=== PATIENT | female | born 1990 | race Caucasian/White ===

== ENCOUNTER 2017-02-02 15:01 | Emergency (ER) | payer OTHER ==
[~2017-02-02 15:01] MED LIST: IBUPROFEN400 MG PO; SUBOXONE1 MI1 SL; VICODIN EQUIVAL1 TAB PO
--- NOTE | 2017-02-02 17:02 | ED CLINICAL REPORT ---
Clinical Report - Physicians/Mid Levels [facility] [address] [place] [address] 02/02/2017 15:02 [id number] Time Seen: 15:06 Feb 02 2017. Arrived- By private vehicle. Historian- patient. HISTORY OF PRESENT ILLNESS Chief Complaint: ABDOMINAL PAIN. This started 10 days PERIODONTIST and is still present. (patient presents with pelvic pain or last 10 days, currently on metronidazole as well as doxycycline, being treated for pelvic inflammatory disease. Unsure of her symptoms are improving. Her discharge and odor has improved. However she continues to have pain. Denies any urgency or frequency or any back pain. Denies any fevers. Patient is sexual active, with a male partner,one partner, who also has not had any complaints. Previous he was treated for chlamydia, however this was distant, perhaps 8 years previously.). REVIEW OF SYSTEMS No constipation, difficulty with urination, pain with urination, fever or headache. All systems otherwise negative, except as recorded above. PAST HISTORY Problems: Recent Travel. Dental Pain. Chronic pain. UTI - Urinary Tract Infection. Ectopic . Pelvic Pain. OB History. Vaginitis. . Pelvic Inflammatory Disease. Nephrolithiasis. Abscess. Healing Abscess. Ovarian Cyst. Immunizations. LNMP - Last Normal Menstrual Period. Additional Surgeries: Dilatation & Curettage. Exploratory laparoscopy. Lysis of adhesions. Tonsillectomy. Medications: Motrin 800mg TID , last one at 1030am . MetroNIDAZOLE Oral, 2x a day as needed, last dose yesterday (had 7 day dose finished yesterday ). Doxycycline Hyclate Oral, BID (today s 8th day, is a 10 day script ). Allergies: Penicillins. SOCIAL HISTORY Smoker- current status unknown. Alcohol use; consumes beer occasionally. History of drug use. PHYSICAL EXAM Appearance: No acute distress. ENT: Nose abnormal. Neck: Normal inspection. CVS: Normal heart rate and rhythm. Heart sounds normal. No cardiac murmur. Respiratory: No respiratory distress. Breath sounds normal. Chest nontender. No rales or rhonchi. Abdomen: Soft and nontender. Mild tenderness in the suprapubic area and lower abdomen. No guarding or Baer's sign present. Back: Normal inspection. : Normal external exam. A scant amount of thin and white vaginal discharge present. Mild cervical motion tenderness. Skin: Skin warm. Normal skin color. Neuro: Oriented X 3. No motor deficit. No sensory deficit. LABS, X-RAYS, AND EKG Laboratory Tests: UA-Culture if indicated: (VALORIE: 02/02/2017 15:15) ( [facility] 02/02/2017 15:58) Final results Test Result Flag Units (Reference) URINE COLOR YELLOW URINE APPEARANCE CLEAR URINE GLUCOSE NEGATIVE (NEGATIVE) URINE BILIRUBIN NEGATIVE (NEGATIVE) URINE KETONE TRACE (NEGATIVE) URINE SPECIFIC GRAVITY 1.010 (1.010-1.030) URINE PH 6.0 (5.0-8.0) URINE PROTEIN NEGATIVE (NEGATIVE) URINE UROBILINOGEN 0.2 EU/dL (0.2-1.0) URINE NITRITE NEGATIVE (NEGATIVE) URINE BLOOD NEGATIVE (NEGATIVE) URINE LEUK ESTERASE NEGATIVE (NEGATIVE) URINE RBC NONE SEEN rbc/hpf (0-1) URINE WBC 1-3 wbc/hpf (0-1) URINE EPITHELIAL CELLS 10-15 EPI/hpf (0-5) URINE BACTERIA MODERATE (2+ TO 3+) (NONE SEEN) URINE COMMENT CULTURE INDICATED 1+ MUCUSURINE CULTURES ARE SET-UP BASED ON THE FOLLOWING CRITERIA:POSITIVE NITRITEPOSITIVE LEUKOCYTE ESTERASEGREATER THAN 10 WHITE BLOOD CELLSMODERATE (2+) OR GREATER BACTERIA CBC w Diff: (VALORIE: 02/02/2017 15:50) ( [facility] 02/02/2017 16:14) Final results Test Result Flag Units (Reference) WHITE BLOOD COUNT 8.5 K/uL (4.5-11.5) RED BLOOD COUNT 4.15 M/uL (4.00-5.20) HEMOGLOBIN 12.6 gm/dL (12.0-16.0) HEMATOCRIT 37.4 % (36.0-46.0) MEAN CELL VOLUME 90 fL (80-100) MEAN CORPUSCULAR HGB 30 pg (26-34) MEAN CORPUSCULAR HGB CONC 34 g/dL (31-37) RED CELL DISTRIBUTION WIDTH 12.6 % (11.6-14.8) PLATELET COUNT 277 K/uL (150-400) NEUTROPHIL % 63.8 % (50-75) LYMPH % 29.9 % (25-40) MONO % 5.8 % (3-14) EOSINOPHIL % 0.3 % (0-4) BASOPHIL % 0.2 % (0-2) CMP: (VALORIE: 02/02/2017 15:50) ( MsgRcvd 02/02/2017 16:28) Final results Test Result Flag Units (Reference) GLUCOSE 89 mg/dL (70-110) BUN 10 mg/dL (7-18) CREATININE 0.7 mg/dL (0.6-1.3) Estimated GFR >60 mL/min Estimated GFR- >60 mL/min Note: Persistent reduction over 3 months in eGFR<60 mL/min/1.73 m2 defines CKD. Patients with eGFR values>=60 mL/min/1.73 m2 may also have CKD if evidence ofpersistent proteinuria. Additional information may be foundat www.kidney.org. SODIUM 142 mmol/L (136-145) POTASSIUM 3.7 mmol/L (3.5-5.1) CHLORIDE 106 mmol/L (98-107) CARBON DIOXIDE 25 mmol/L (21-32) CALCIUM 9.2 mg/dL (8.5-10.1) TOTAL PROTEIN 7.2 g/dL (6.4-8.2) ALBUMIN 4.1 g/dL (3.3-5.0) BILIRUBIN, TOTAL 0.4 mg/dL (0.0-1.0) ALKALINE PHOSPHATASE 37 L U/L (46-116) AST (SGOT) 14 L U/L (15-37) ALT (SGPT) 22 U/L (12-78) BETA HCG, QUANTITATIVE <1 mIU/mL REFERENCE RANGE:Adult Males: <2 mIU/mLNon- Females: <6 mIU/mL Females:Approximate Approximate hCGGestational Age Range (mIU/mL) 0-1 week 0-501-2 weeks 40-3002-3 weeks 100-39535-3 weeks 500-93581-5 months 5,000-200,0002-3 months 10,000-100,0002nd trimester 3,000-50,0003rd trimester 1,000-50,000 Wet Prep: (VALORIE: 02/02/2017 15:45) ( MsgRcvd 02/02/2017 16:15) Final results SPECIMEN DESCRIPTION: C Test Result Flag Units (Reference) WET MOUNT CLUE CELLS:: NONE EPITHELIAL CELLS: MODERATE -- SOURCE?: CERVIX WHITE BLOOD CELLS: FEW TRICHOMONAS:: NONE -- YEAST:: NONE . Note - Tests: (us Neg). PROGRESS AND PROCEDURES Course of Care: Sexually active female, with no signs of in the emergency department. Labs are largely unremarkable. Patient is finishing treatment for PID, whether she has irritation of the area, or underlying gonorrhea or chlamydia, such are pending results. Patient is urged to follow up with CREAM DIPPER. At this time abdomen without any signs of guarding, peritoneal signs, no signs of acute surgical abdomen. During the time in the ED, the following DDX were considered: acute surgical abdomen, hemodynamic or metabolic instability, dehydration, gastroenteritis-viral, food borne, or bacterial, food intolerance, irritable or inflammatory bowel, infection, sepsis. Patient is stable. Patient/family counseled. Disposition: Discharged. CLINICAL IMPRESSION Acute pelvic inflammatory disease. INSTRUCTIONS Drink plenty of fluids. Prescription Medications: Hydrocodone/APAP 5mg / 325mg: take 1 orally every 6 hours as needed for pain. Dispense twelve (12). No refill. Follow-up with: Marcial Abdi MD, Obstetrics/Gynecology, , [facility], [address] [place] [address], [facility], [facility] Follow up. Call for the next available appointment. (Electronically signed by Yara Mccormack P.A.-C 02/02/2017 17:14)
--- NOTE | 2017-02-02 17:02 | ED CLINICAL REPORT ---
Clinical Report - Physicians/Mid Levels [facility] [address] [place] [address] 02/02/2017 15:02 [id number] Time Seen: 15:06 Feb 02 2017. Arrived- By private vehicle. Historian- patient. HISTORY OF PRESENT ILLNESS Chief Complaint: ABDOMINAL PAIN. 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 (patient presents with pelvic pain or last 10 days, currently on metronidazole as well as doxycycline, being treated for pelvic inflammatory disease. Unsure of her symptoms are improving. Her discharge and odor has improved. However she continues to have pain. Denies any urgency or frequency or any back pain. Denies any fevers. Patient is sexual active, with a male partner,one partner, who also has not had any complaints. Previous he was treated for chlamydia, however this was distant, perhaps 8 years previously.). REVIEW OF SYSTEMS No constipation, difficulty with urination, pain with urination, fever or headache. All systems otherwise negative, except as recorded above. PAST HISTORY Problems: Recent Travel. Dental Pain. Chronic pain. UTI - Urinary Tract Infection. Ectopic . Pelvic Pain. OB History. Vaginitis. . Pelvic Inflammatory Disease. Nephrolithiasis. Abscess. Healing Abscess. Ovarian Cyst. Immunizations. LNMP - Last Normal Menstrual Period. Additional Surgeries: Dilatation & Curettage. Exploratory laparoscopy. Lysis of adhesions. Tonsillectomy. Medications: Motrin 800mg TID , last one at 1030am . MetroNIDAZOLE Oral, 2x a day as needed, last dose yesterday (had 7 day dose finished yesterday ). Doxycycline Hyclate Oral, BID (today s 8th day, is a 10 day script ). Allergies: Penicillins. SOCIAL HISTORY Smoker- current status unknown. Alcohol use; consumes beer occasionally. History of drug use. PHYSICAL EXAM Appearance: No acute distress. ENT: Nose abnormal. Neck: Normal inspection. CVS: Normal heart rate and rhythm. Heart sounds normal. No cardiac murmur. Respiratory: No respiratory distress. Breath sounds normal. Chest nontender. No rales or rhonchi. Abdomen: Soft and nontender. Mild tenderness in the suprapubic area and lower abdomen. No guarding or Baer's sign present. Back: Normal inspection. : Normal external exam. A scant amount of thin and white vaginal discharge present. Mild cervical motion tenderness. Skin: Skin warm. Normal skin color. Neuro: Oriented X 3. No motor deficit. No sensory deficit. LABS, X-RAYS, AND EKG Laboratory Tests: UA-Culture if indicated: (VALORIE: 02/02/2017 15:15) ( [facility] 02/02/2017 15:58) Final results Test Result Flag Units (Reference) URINE COLOR YELLOW URINE APPEARANCE CLEAR URINE GLUCOSE NEGATIVE (NEGATIVE) URINE BILIRUBIN NEGATIVE (NEGATIVE) URINE KETONE TRACE (NEGATIVE) URINE SPECIFIC GRAVITY 1.010 (1.010-1.030) URINE PH 6.0 (5.0-8.0) URINE PROTEIN NEGATIVE (NEGATIVE) URINE UROBILINOGEN 0.2 EU/dL (0.2-1.0) URINE NITRITE NEGATIVE (NEGATIVE) URINE BLOOD NEGATIVE (NEGATIVE) URINE LEUK ESTERASE NEGATIVE (NEGATIVE) URINE RBC NONE SEEN rbc/hpf (0-1) URINE WBC 1-3 wbc/hpf (0-1) URINE EPITHELIAL CELLS 10-15 EPI/hpf (0-5) URINE BACTERIA MODERATE (2+ TO 3+) (NONE SEEN) URINE COMMENT CULTURE INDICATED 1+ MUCUSURINE CULTURES ARE SET-UP BASED ON THE FOLLOWING CRITERIA:POSITIVE NITRITEPOSITIVE LEUKOCYTE ESTERASEGREATER THAN 10 WHITE BLOOD CELLSMODERATE (2+) OR GREATER BACTERIA CBC w Diff: (VALORIE: 02/02/2017 15:50) ( [facility] 02/02/2017 16:14) Final results Test Result Flag Units (Reference) WHITE BLOOD COUNT 8.5 K/uL (4.5-11.5) RED BLOOD COUNT 4.15 M/uL (4.00-5.20) HEMOGLOBIN 12.6 gm/dL (12.0-16.0) HEMATOCRIT 37.4 % (36.0-46.0) MEAN CELL VOLUME 90 fL (80-100) MEAN CORPUSCULAR HGB 30 pg (26-34) MEAN CORPUSCULAR HGB CONC 34 g/dL (31-37) RED CELL DISTRIBUTION WIDTH 12.6 % (11.6-14.8) PLATELET COUNT 277 K/uL (150-400) NEUTROPHIL % 63.8 % (50-75) LYMPH % 29.9 % (25-40) MONO % 5.8 % (3-14) EOSINOPHIL % 0.3 % (0-4) BASOPHIL % 0.2 % (0-2) CMP: (VALORIE: 02/02/2017 15:50) ( MsgRcvd 02/02/2017 16:28) Final results Test Result Flag Units (Reference) GLUCOSE 89 mg/dL (70-110) BUN 10 mg/dL (7-18) CREATININE 0.7 mg/dL (0.6-1.3) Estimated GFR >60 mL/min Estimated GFR- >60 mL/min Note: Persistent reduction over 3 months in eGFR<60 mL/min/1.73 m2 defines CKD. Patients with eGFR values>=60 mL/min/1.73 m2 may also have CKD if evidence ofpersistent proteinuria. Additional information may be foundat www.kidney.org. SODIUM 142 mmol/L (136-145) POTASSIUM 3.7 mmol/L (3.5-5.1) CHLORIDE 106 mmol/L (98-107) CARBON DIOXIDE 25 mmol/L (21-32) CALCIUM 9.2 mg/dL (8.5-10.1) TOTAL PROTEIN 7.2 g/dL (6.4-8.2) ALBUMIN 4.1 g/dL (3.3-5.0) BILIRUBIN, TOTAL 0.4 mg/dL (0.0-1.0) ALKALINE PHOSPHATASE 37 L U/L (46-116) AST (SGOT) 14 L U/L (15-37) ALT (SGPT) 22 U/L (12-78) BETA HCG, QUANTITATIVE <1 mIU/mL REFERENCE RANGE:Adult Males: <2 mIU/mLNon- Females: <6 mIU/mL Females:Approximate Approximate hCGGestational Age Range (mIU/mL) 0-1 week 0-501-2 weeks 40-3002-3 weeks 100-46524-4 weeks 500-48150-3 months 5,000-200,0002-3 months 10,000-100,0002nd trimester 3,000-50,0003rd trimester 1,000-50,000 Wet Prep: (VALORIE: 02/02/2017 15:45) ( MsgRcvd 02/02/2017 16:15) Final results SPECIMEN DESCRIPTION: C Test Result Flag Units (Reference) WET MOUNT CLUE CELLS:: NONE EPITHELIAL CELLS: MODERATE -- SOURCE?: CERVIX WHITE BLOOD CELLS: FEW TRICHOMONAS:: NONE -- YEAST:: NONE . Note - Tests: (us Neg). PROGRESS AND PROCEDURES Course of Care: Sexually active female, with no signs of in the emergency department. Labs are largely unremarkable. Patient is finishing treatment for PID, whether she has irritation of the area, or underlying gonorrhea or chlamydia, such are pending results. Patient is urged to follow up with WELL CONTROL INSTRUCTOR. At this time abdomen without any signs of guarding, peritoneal signs, no signs of acute surgical abdomen. During the time in the ED, the following DDX were considered: acute surgical abdomen, hemodynamic or metabolic instability, dehydration, gastroenteritis-viral, food borne, or bacterial, food intolerance, irritable or inflammatory bowel, infection, sepsis. Patient is stable. Patient/family counseled. Disposition: Discharged. CLINICAL IMPRESSION Acute pelvic inflammatory disease. INSTRUCTIONS Drink plenty of fluids. Prescription Medications: Hydrocodone/APAP 5mg / 325mg: take 1 orally every 6 hours as needed for pain. Dispense twelve (12). No refill. Follow-up with: Marcial Abdi MD, Obstetrics/Gynecology, , [facility], [address] [place] [address], [facility] Follow up. Call for the next available appointment. (Electronically signed by Yara Mccormack P.A.-C 02/02/2017 17:14)
--- NOTE | 2017-02-02 17:02 | ED NURSING NOTES ---
Clinical Report - Nurses [facility] [address] [place] [address] 02/02/2017 15:02 Patient: BRITTANIE BEJARANO TRIAGE Triage time 1505. Acuity: LEVEL 3. Chief Complaint: (pt c/o low midline abd pain, is being treated for PID, but still having pain and clinic said she might need US, so directed her to ED>. Pt states she is better on antibiotics. Not having pain with urination, and vag discharge is scant and not foul smelling). 15:05. --15:19 Fabiana Mcnamara R.N. 15:05 02/02/17. BP: 118/73. HR: 86. RR: 18. O2 saturation: 100%. Temp: 98.7 F. Pain level now: 05/28. --15:19 Fabiana Mcnamara R.N. Weight: 54.4 kg stated. Height/Length: 64 inches Per Patient. BMI: 20.6. --15:09 Fabiana Mcnamara R.N. Medications Doxycycline Hyclate Oral, BID (today s 8th day, is a 10 day script ). --15:11 Fabiana Mcnamara R.N. MetroNIDAZOLE Oral, 2x a day as needed, last dose yesterday (had 7 day dose finished yesterday ). --15:12 Fabiana Mcnamara R.N. Motrin 800mg TID , last one at 1030am . --15:13 Fabiana Mcnamara R.N. Allergies Penicillins. --15:08 Fabiana Mcnamara R.N. History Arrived by private vehicle. Historian: patient. Accompanied by (dropped off). No primary care physician. SOCIAL HX: Heavy tobacco smoker (cigarette)- less than 1 pack per day. Occasional alcohol use. History of drug use: marijuana. --15:19 Fabiana Mcnamara R.N. PROBLEMS: UTI - Urinary Tract Infection. Ectopic . Pelvic Pain. Vaginitis. Pelvic Inflammatory Disease. Nephrolithiasis. --15:08 Fabiana Mcnamara R.N. ADDITIONAL SURGERIES: Dilatation & Curettage. Exploratory laparoscopy. Lysis of adhesions. Tonsillectomy. --15:08 Fabiana Mcnamara R.N. Interventions ID band on patient. To treatment room. --15:19 Fabiana Mcnamara R.N. PHYSICAL ASSESSMENT 15:06. Ambulatory to room. Patient gowned. GENERAL / NEURO / PSYCH: Alert. Oriented X 4. Appears in pain. RESPIRATORY: Respirations not labored. CVS: Capillary refill less than 2 seconds. SKIN: Skin is warm and dry. --15:19 Fabiana Mcnamara R.N. NURSING PROGRESS NOTES 15:06 02/02/17. Patient gowned. Head of bed elevated. Reassurance given. Patient identifiers checked. Call light placed in reach. Side rails up. Bed placed in lowest position. --15:06 Fabiana Mcnamara R.N. 15:12. Patient ID band checked for patient name and birthdate: patient confirmed. Instructions provided to collect clean catch urine. Clean catch urine collected; sample sent to lab for urinalysis and culture. Specimen labeled in the presence of the patient. --15:19 Fabiana Mcnamara R.N. 15:48 02/02/17. PELVIC EXAM: Pelvic exam performed by PA. Assisted by one nurse. Preparation: pelvic tray; patient placed in lithotomy position. Procedure: speculum and bimanual exam. Specimens collected and sent to lab: GC, chlamydia, wet prep and DNA probe. Status post-procedure: she was stable. Total time of assist / procedure: 15 minutes. --15:48 Fabiana Mcnamara R.N. 15:57 02/02/17. Patient ID band checked for patient name and birthdate. Blood samples drawn by lab per protocol ; labeled in presence of the patient: rainbow set. Blood samples not sent to lab. --15:57 Fabiana Mcnamara R.N. 16:29 US at bedside. --16:29 Adrianne Acosta R.N. 16:35 02/02/2017 Hydrocodone-APAP (Hydrocodone-Acetaminophen) PO 5/325 mg Tablets 2 tab given. Allergies verified, confirmed 5 rights and sedative warning given to the patient. --16:35 Adrianne Acosta R.N. 16:45 Pt ambulated to bathroom. stable on feet. --16:48 Fabiana Mcnamara R.N. DISPOSITION / DISCHARGE 17:10. Condition at departure: stable. No learning barriers present. Discharge instructions provided and reviewed with the patient. Reviewed medication(s) (vicodin, motrin). Patient verbalized understanding. Written instructions provided in Upper Sorbian. The patient was discharged home and accompanied by inpatient pharmacist. She left the Emergency Department ambulatory and via private vehicle. Reconciliation Specialist driving. --18:04 Fabiana Mcnamara R.N. 17:10 02/02/17. BP: 117/74. HR: 70. RR: 18. O2 saturation: 100%. Temp: deferred. Pain level now: 8/10. Additional comments: states worse after us probe. --18:04 Fabiana Mcnamara R.N. Locked/Released at 02/02/2017 18:05 by Fabiana Mcnamara R.N.
--- NOTE | 2017-02-02 17:02 | ED ORDER SUMMARY ---
..... Patient: BRITTANIE BEJARANO OrderSheet [facility] VisitID: [id number] [place] [address] 26y, F Registration Date/Time: 02/02/2017 ORDER SHEET Weight: 54.4 kg (stated) Allergies: Penicillins GENERAL ORDERS: CBC w Diff Urgent (15:22 02/02/2017 EKoroleva P.A.-C) (Ack 15:32 PWeiler ER Tech1) (16:33 DDean R.N.) CMP Urgent (15:22 02/02/2017 EKoroleva P.A.-C) (Ack 15:32 PWeiler ER Tech1) (16:33 DDean R.N.) UA-Culture if indicated Urgent (15:22 02/02/2017 EKoroleva P.A.-C) (Ack 15:32 PWeiler ER Tech1) (15:48 DDean R.N.) Serum Quantitative Urgent (15:22 02/02/2017 EKoroleva P.A.-C) (Ack 15:32 PWeiler ER Tech1) (16:33 DDean R.N.) Wet Prep (Cervix) (c) Urgent (15:22 02/02/2017 EKoroleva P.A.-C) (Ack 15:32 PWeiler ER Tech1) (15:48 DDean R.N.) GC/Chlamydia (Cervix) (c) Urgent (15:22 02/02/2017 EKoroleva P.A.-C) (Ack 15:32 PWeiler ER Tech1) (15:48 DDean R.N.) Pelvic Exam Setup (15:26 02/02/2017 EKoroleva P.A.-C) (15:26 DDean R.N.) US Pelvic Complete w Transvag Urgent (16:00 02/02/2017 EKoroleva P.A.-C) (Ack 16:01 PWeiler ER Tech1) (18:04 DDean R.N.) MEDICATION ORDERS: Hydrocodone-APAP PO 10/650 mg (NOW, HIGH ALERT MEDICATION) (16:29 02/02/2017 Mumtaz Barrientos) (Ack 16:33 Elaina Higgins) (16:35 Mateo Higgins) IV FLUIDS: ORDER SHEET NOTES: [Electronically signed by Yara Mccormack P.A.-C (17:14 02/02/2017)] [Electronically signed by Fabiana Mcnamara R.N. (18:05 02/02/2017)] [Electronically locked/signed by Fabiana Mcnamara R.N. (18:05 02/02/2017)]
--- NOTE | 2017-02-02 17:02 | ED ORDER SUMMARY ---
..... Patient: BRITTANIE BEJARANO OrderSheet [facility] VisitID: [id number] [place] [address] 26y, F Registration Date/Time: 02/02/2017 ORDER SHEET Weight: 54.4 kg (stated) Allergies: Penicillins GENERAL ORDERS: CBC w Diff Urgent (15:22 02/02/2017 EKoroleva P.A.-C) (Ack 15:32 PWeiler ER Tech1) (16:33 DDean R.N.) CMP Urgent (15:22 02/02/2017 EKoroleva P.A.-C) (Ack 15:32 PWeiler ER Tech1) (16:33 DDean R.N.) UA-Culture if indicated Urgent (15:22 02/02/2017 EKoroleva P.A.-C) (Ack 15:32 PWeiler ER Tech1) (15:48 DDean R.N.) Serum Quantitative Urgent (15:22 02/02/2017 EKoroleva P.A.-C) (Ack 15:32 PWeiler ER Tech1) (16:33 DDean R.N.) Wet Prep (Cervix) (c) Urgent (15:22 02/02/2017 EKoroleva P.A.-C) (Ack 15:32 PWeiler ER Tech1) (15:48 DDean R.N.) GC/Chlamydia (Cervix) (c) Urgent (15:22 02/02/2017 EKoroleva P.A.-C) (Ack 15:32 PWeiler ER Tech1) (15:48 DDean R.N.) Pelvic Exam Setup (15:26 02/02/2017 EKoroleva P.A.-C) (15:26 DDean R.N.) US Pelvic Complete w Transvag Urgent (16:00 02/02/2017 EKoroleva P.A.-C) (Ack 16:01 PWeiler ER Tech1) (18:04 DDean R.N.) MEDICATION ORDERS: Hydrocodone-APAP PO 10/650 mg (NOW, HIGH ALERT MEDICATION) (16:29 02/02/2017 Mumtaz Barrientos) (Ack 16:33 Elaina Higgisn) (16:35 Mateo Higgins) IV FLUIDS: ORDER SHEET NOTES: [Electronically signed by Yara Mccormack P.A.-C (17:14 02/02/2017)] [Electronically signed by Fabiana Mcnamara R.N. (18:05 02/02/2017)] [Electronically locked/signed by Fabiana Mcnamara R.N. (18:05 02/02/2017)]
--- NOTE | 2017-02-02 17:02 | ED NURSING NOTES ---
Clinical Report - Nurses [facility] [address] [place] [address] 02/02/2017 15:02 Patient: BRITTANIE BEJARANO TRIAGE Triage time 1505. Acuity: LEVEL 3. Chief Complaint: (pt c/o low midline abd pain, is being treated for PID, but still having pain and clinic said she might need US, so directed her to ED>. Pt states she is better on antibiotics. Not having pain with urination, and vag discharge is scant and not foul smelling). 15:05. --15:19 Fabiana Mcnamara R.N. 15:05 02/02/17. BP: 118/73. HR: 86. RR: 18. O2 saturation: 100%. Temp: 98.7 F. Pain level now: 05/28. --15:19 Fabiana Mcnamara R.N. Weight: 54.4 kg stated. Height/Length: 64 inches Per Patient. BMI: 20.6. --15:09 Fabiana Mcnamara R.N. Medications Doxycycline Hyclate Oral, BID (today s 8th day, is a 10 day script ). --15:11 Fabiana Mcnamara R.N. MetroNIDAZOLE Oral, 2x a day as needed, last dose yesterday (had 7 day dose finished yesterday ). --15:12 Fabiana Mcnamara R.N. Motrin 800mg TID , last one at 1030am . --15:13 Fabiana Mcnamara R.N. Allergies Penicillins. --15:08 Fabiana Mcnamara R.N. History Arrived by private vehicle. Historian: patient. Accompanied by (dropped off). No primary care physician. SOCIAL HX: Heavy tobacco smoker (cigarette)- less than 1 pack per day. Occasional alcohol use. History of drug use: marijuana. --15:19 Fabiana Mcnamara R.N. PROBLEMS: UTI - Urinary Tract Infection. Ectopic . Pelvic Pain. Vaginitis. Pelvic Inflammatory Disease. Nephrolithiasis. --15:08 Fabiana Mcnamara R.N. ADDITIONAL SURGERIES: Dilatation & Curettage. Exploratory laparoscopy. Lysis of adhesions. Tonsillectomy. --15:08 Fabiana Mcnamara R.N. Interventions ID band on patient. To treatment room. --15:19 Fabiana Mcnamara R.N. PHYSICAL ASSESSMENT 15:06. Ambulatory to room. Patient gowned. GENERAL / NEURO / PSYCH: Alert. Oriented X 4. Appears in pain. RESPIRATORY: Respirations not labored. CVS: Capillary refill less than 2 seconds. SKIN: Skin is warm and dry. --15:19 Fabiana Mcnamara R.N. NURSING PROGRESS NOTES 15:06 02/02/17. Patient gowned. Head of bed elevated. Reassurance given. Patient identifiers checked. Call light placed in reach. Side rails up. Bed placed in lowest position. --15:06 Fabiana Mcnamara R.N. 15:12. Patient ID band checked for patient name and birthdate: patient confirmed. Instructions provided to collect clean catch urine. Clean catch urine collected; sample sent to lab for urinalysis and culture. Specimen labeled in the presence of the patient. --15:19 Fabiana Mcnamara R.N. 15:48 02/02/17. PELVIC EXAM: Pelvic exam performed by PA. Assisted by one nurse. Preparation: pelvic tray; patient placed in lithotomy position. Procedure: speculum and bimanual exam. Specimens collected and sent to lab: GC, chlamydia, wet prep and DNA probe. Status post-procedure: she was stable. Total time of assist / procedure: 15 minutes. --15:48 Fabiana Mcnamara R.N. 15:57 02/02/17. Patient ID band checked for patient name and birthdate. Blood samples drawn by lab per protocol ; labeled in presence of the patient: rainbow set. Blood samples not sent to lab. --15:57 Fabiana Mcnamara R.N. 16:29 US at bedside. --16:29 Adrianne Acosta R.N. 16:35 02/02/2017 Hydrocodone-APAP (Hydrocodone-Acetaminophen) PO 5/325 mg Tablets 2 tab given. Allergies verified, confirmed 5 rights and sedative warning given to the patient. --16:35 Adrianne Acosta R.N. 16:45 Pt ambulated to bathroom. stable on feet. --16:48 Fabiana Mcnamara R.N. DISPOSITION / DISCHARGE 17:10. Condition at departure: stable. No learning barriers present. Discharge instructions provided and reviewed with the patient. Reviewed medication(s) (vicodin, motrin). Patient verbalized understanding. Written instructions provided in Setswana. The patient was discharged home and accompanied by soil analyst. She left the Emergency Department ambulatory and via private vehicle. Server Systems Administrator driving. --18:04 Fabiana Mcnamara R.N. 17:10 02/02/17. BP: 117/74. HR: 70. RR: 18. O2 saturation: 100%. Temp: deferred. Pain level now: 8/10. Additional comments: states worse after us probe. --18:04 Fabiana Mcnamara R.N. Locked/Released at 02/02/2017 18:05 by Fabiana Mcnamara R.N.
--- NOTE | 2017-02-02 18:05 | ED MED RECONCILIATION SUMMARY ---
Patient: BRITTANIE BEJARANO Medication Reconciliation Report [facility] VisitID: [id number] [address] [place] [address] 26y, F Registration Date/Time: 02/02/2017 Weight: 54.4 kg Height/Length: 64 in. BMI: 20.6 ALLERGIES: Penicillins The patient's Home Medications are listed below: THE FOLLOWING MEDICATIONS NEED TO BE RECONCILED: Doxycycline Hyclate Oral, BID, today s 8th day, is a 10 day script MetroNIDAZOLE Oral, 2x a day, last dose: yesterday , had 7 day dose finished yesterday Motrin 800mg TID , last one at 1030am The source(s) of the original Home Medication information: Not obtained. The following Medications were given to the patient in the Emergency Department: Hydrocodone-APAP [PO] PO 2 tab, administered: 02/02/2017 4:35:00 PM The following Medications were prescribed to the patient: Hydrocodone/APAP 5mg / 325mg: take 1 orally every 6 hours as needed for pain. Dispense twelve (12). No refill. -- Yara Mccormack PArthur
--- NOTE | 2017-02-02 18:05 | ED DISCHARGE INSTRUCTIONS ---
Patient: BRITTANIE BEJARANO General Instructions [facility] VisitID: [id number] [place] [id number] 26y, F Registration Date/Time: 02/02/2017 Acute pelvic inflammatory disease. INSTRUCTIONS Drink plenty of fluids. Prescription Medications: Hydrocodone/APAP 5mg / 325mg: take 1 orally every 6 hours as needed for pain. Dispense twelve (12). No refill. Follow-up with: Marcial Abdi MD, Obstetrics/Gynecology, , Located Within [facility], [address] [place] [address] Follow up. Call for the next available appointment. ADDITIONAL INFORMATION Pelvic Inflammatory Disease Pelvic Inflammatory Disease (PID) is an infection of the female organs (uterus, ovary, or Fallopian tubes). This is most often the result of a sexually transmitted disease (STD). Sometimes, PID can be due to an overgrowth of normal bacteria and not caused by an STD. Whatever its cause, PID is a serious problem. It can lead to infertility (inability to become ) unless it is treated promptly. Home Care: Take all of the medicine prescribed, even if you start to feel better before taking all the pills. You may use acetaminophen (Tylenol) or ibuprofen (Motrin, Advil) to control pain, unless another pain medicine was prescribed. [NOTE: If you have chronic liver or kidney disease or ever had a stomach ulcer or GI bleeding, talk with your doctor before using these medicines.] Your sexual partner should contact his own doctor or go to the Public Health Department to be examined. If his test is positive or if he is having symptoms of discharge or burning when passing urine, he should be treated, too. Avoid sexual activity until both you and your partner have finished taking all of the antibiotic medicine, and your doctor has told you that you are cured. Learn about safe sex practices and use these in the future. The safest sex is with a partner who has tested negative and only has sex with you. Condoms offer protection from spreading some sexually transmitted diseases including Gonorrhea, Chlamydia and HIV, but are not a guarantee. Follow Up with your doctor or as advised by our staff. If a culture test was taken, you may call us in three days for the results, or as directed. Another culture test should be taken 4-6 weeks after treatment to be sure the infection has cleared. Follow up with your doctor or the Public Health Department for complete STD screening, including HIV testing. For more information about STD's, contact the National STD Hotline: . Get Prompt Medical Attention if any of the following occur: No improvement after three days of treatment New or increasing lower abdominal pain or back pain Unexpected vaginal bleeding Weakness, dizziness or fainting Repeated vomiting Inability to urinate due to pain Rash or joint pain Painful open sores around the outer vagina Enlarged painful lymph nodes (lumps) in the groin Pelvic Pain, Uncertain Cause Based on your visit today, the exact cause of your pelvic pain is not certain. But your condition does not appear to be serious at this time. However, the signs of a serious problem may take more time to appear. Therefore, it is important for you to watch for any new symptoms or worsening of your condition. Home Care: Rest until you are feeling better. Avoid sexual intercourse until your pain goes away. You may use acetaminophen (Tylenol) or ibuprofen (Motrin, Advil) to control pain, unless another medicine was prescribed. [NOTE: If you have chronic liver or kidney disease or ever had a stomach ulcer or GI bleeding, talk with your doctor before using these medicines.] Follow Up with your doctor as advised. If a culture test was taken, call in two days for the results. If the culture is positive, you will be given more advice at that time. Otherwise, follow-up with your doctor or this facility as instructed. Get Prompt Medical Attention if any of the following occur: Fever of 100.4F (38C) or higher, or as directed by your healthcare provider Vaginal discharge Worsening pain Weakness, dizziness or fainting Unexpected vaginal bleeding or passage of barrios or white tissue from the vagina Pain that moves to the right lower abdomen Hydrocodone Bitartrate, Acetaminophen Oral tablet What is this medicine? ACETAMINOPHEN; HYDROCODONE (a set a FAHAD jamie fen; ida droe KOE done) is a pain reliever. It is used to treat mild to moderate pain. How should I use this medicine? Take this medicine by mouth. Swallow it with a full glass of water. Follow the directions on the prescription label. If the medicine upsets your stomach, take the medicine with food or milk. Do not take more than you are told to take. Talk to your facility mechanic regarding the use of this medicine in children. This medicine is not approved for use in children. What side effects may I notice from receiving this medicine? Side effects that you should report to your doctor or health day care center director as soon as possible: allergic reactions like skin rash, itching or hives, swelling of the face, lips, or tongue breathing problems confusion feeling faint or lightheaded, falls stomach pain yellowing of the eyes or skin Side effects that usually do not require medical attention (report to your doctor or health day care center director if they continue or are bothersome): nausea, vomiting stomach upset What may interact with this medicine? alcohol antihistamines isoniazid medicines for depression, anxiety, or psychotic disturbances medicines for sleep muscle relaxants naltrexone narcotic medicines (opiates) for pain phenobarbital ritonavir tramadol What if I miss a dose? If you miss a dose, take it as soon as you can. If it is almost time for your next dose, take only that dose. Do not take double or extra doses. Where should I keep my medicine? Keep out of the reach of children. This medicine can be abused. Keep your medicine in a safe place to protect it from theft. Do not share this medicine with anyone. Selling or giving away this medicine is dangerous and against the law. Store at room temperature between 15 and 30 degrees C (59 and 86 degrees F). Protect from light. Keep container tightly closed. Throw away any unused medicine after the expiration date. Discard unused medicine and used packaging carefully. Pets and children can be harmed if they find used or lost packages. What should I tell my health care provider before I take this medicine? They need to know if you have any of these conditions: brain tumor Crohn's disease, inflammatory bowel disease, or ulcerative colitis drink more than 3 alcohol-containing drinks per day drug abuse or addiction head injury heart or circulation problems kidney disease or problems going to the bathroom liver disease lung disease, asthma, or breathing problems an unusual or allergic reaction to acetaminophen, hydrocodone, other opioid analgesics, other medicines, foods, dyes, or preservatives or trying to get breast-feeding What should I watch for while using this medicine? Tell your doctor or health day care center director if your pain does not go away, if it gets worse, or if you have new or a different type of pain. You may develop tolerance to the medicine. Tolerance means that you will need a higher dose of the medicine for pain relief. Tolerance is normal and is expected if you take the medicine for a long time. Do not suddenly stop taking your medicine because you may develop a severe reaction. Your body becomes used to the medicine. This does NOT mean you are addicted. Addiction is a behavior related to getting and using a drug for a non-medical reason. If you have pain, you have a medical reason to take pain medicine. Your doctor will tell you how much medicine to take. If your doctor wants you to stop the medicine, the dose will be slowly lowered over time to avoid any side effects. You may get drowsy or dizzy when you first start taking the medicine or change doses. Do not drive, use machinery, or do anything that may be dangerous until you know how the medicine affects you. Stand or sit up slowly. There are different types of narcotic medicines (opiates) for pain. If you take more than one type at the same time, you may have more side effects. Give your health care provider a list of all medicines you use. Your doctor will tell you how much medicine to take. Do not take more medicine than directed. Call emergency for help if you have problems breathing. The medicine will cause constipation. Try to have a bowel movement at least every 2 to 3 days. If you do not have a bowel movement for 3 days, call your doctor or health day care center director. Too much acetaminophen can be very dangerous. Do not take Tylenol (acetaminophen) or medicines that contain acetaminophen with this medicine. Many non-prescription medicines contain acetaminophen. Always read the labels carefully. You have been given the following additional information: Pelvic Inflammatory Disease Pelvic Pain, Unknown Cause Hydrocodone Bitartrate, Acetaminophen Oral tablet (Electronically signed by Yara Mccormack P.A.-C 02/02/2017 17:14)
--- NOTE | 2017-02-02 18:05 | ED MED RECONCILIATION SUMMARY ---
Patient: BRITTANIE BEJARANO Medication Reconciliation Report [facility] VisitID: [id number] [address] [place] [address] 26y, F Registration Date/Time: 02/02/2017 Weight: 54.4 kg Height/Length: 64 in. BMI: 20.6 ALLERGIES: Penicillins The patient's Home Medications are listed below: THE FOLLOWING MEDICATIONS NEED TO BE RECONCILED: Doxycycline Hyclate Oral, BID, today s 8th day, is a 10 day script MetroNIDAZOLE Oral, 2x a day, last dose: yesterday , had 7 day dose finished yesterday Motrin 800mg TID , last one at 1030am The source(s) of the original Home Medication information: Not obtained. The following Medications were given to the patient in the Emergency Department: Hydrocodone-APAP [PO] PO 2 tab, administered: 02/02/2017 4:35:00 PM The following Medications were prescribed to the patient: Hydrocodone/APAP 5mg / 325mg: take 1 orally every 6 hours as needed for pain. Dispense twelve (12). No refill. -- Yara Mccormack PArthur
--- NOTE | 2017-02-02 18:05 | ED MAR SUMMARY ---
..... Medication Administration Record [facility] [address] [place] [address] Patient: BRITTANIE BEJARANO Visit ID: [id number] 26y, F Weight: 54.4 kg Height/Length: 64 in BMI: 20.6 ALLERGIES: Penicillins Given 16:35 02/02/2017 Adrianne Acosta R.N. Medication Administered: HYDROCODONE-APAP [PO] (HYDROCODONE-ACETAMINOPHEN), Dose: 2 tab 5/325 mg Tablets PO. Medication Ordered: Hydrocodone-APAP PO 10/650 mg (NOW, HIGH ALERT MEDICATION).
--- NOTE | 2017-02-02 18:05 | ED MAR SUMMARY ---
..... Medication Administration Record [facility] [address] [place] [address] Patient: BRITTAINE BEJARANO Visit ID: [id number] 26y, F Weight: 54.4 kg Height/Length: 64 in BMI: 20.6 ALLERGIES: Penicillins Given 16:35 02/02/2017 Adrianne Acosta R.N. Medication Administered: HYDROCODONE-APAP [PO] (HYDROCODONE-ACETAMINOPHEN), Dose: 2 tab 5/325 mg Tablets PO. Medication Ordered: Hydrocodone-APAP PO 10/650 mg (NOW, HIGH ALERT MEDICATION).
--- NOTE | 2017-02-02 18:05 | ED DISCHARGE INSTRUCTIONS ---
Patient: BRITTANIE BEJARANO General Instructions [facility] VisitID: [id number] [place]en [place] [id number], F Registration Date/Time: 02/02/2017 Acute pelvic inflammatory disease. INSTRUCTIONS Drink plenty of fluids. Prescription Medications: Hydrocodone/APAP 5mg / 325mg: take 1 orally every 6 hours as needed for pain. Dispense twelve (12). No refill. Follow-up with: Marcial Abdi MD, Obstetrics/Gynecology, , [facility], [address] [place] [address] Follow up. Call for the next available appointment. ADDITIONAL INFORMATION Pelvic Inflammatory Disease Pelvic Inflammatory Disease (PID) is an infection of the female organs (uterus, ovary, or Fallopian tubes). This is most often the result of a sexually transmitted disease (STD). Sometimes, PID can be due to an overgrowth of normal bacteria and not caused by an STD. Whatever its cause, PID is a serious problem. It can lead to infertility (inability to become ) unless it is treated promptly. Home Care: Take all of the medicine prescribed, even if you start to feel better before taking all the pills. You may use acetaminophen (Tylenol) or ibuprofen (Motrin, Advil) to control pain, unless another pain medicine was prescribed. [NOTE: If you have chronic liver or kidney disease or ever had a stomach ulcer or GI bleeding, talk with your doctor before using these medicines.] Your sexual partner should contact his own doctor or go to the Public Health Department to be examined. If his test is positive or if he is having symptoms of discharge or burning when passing urine, he should be treated, too. Avoid sexual activity until both you and your partner have finished taking all of the antibiotic medicine, and your doctor has told you that you are cured. Learn about safe sex practices and use these in the future. The safest sex is with a partner who has tested negative and only has sex with you. Condoms offer protection from spreading some sexually transmitted diseases including Gonorrhea, Chlamydia and HIV, but are not a guarantee. Follow Up with your doctor or as advised by our staff. If a culture test was taken, you may call us in three days for the results, or as directed. Another culture test should be taken 4-6 weeks after treatment to be sure the infection has cleared. Follow up with your doctor or the Public Health Department for complete STD screening, including HIV testing. For more information about STD's, contact the National STD Hotline: . Get Prompt Medical Attention if any of the following occur: No improvement after three days of treatment New or increasing lower abdominal pain or back pain Unexpected vaginal bleeding Weakness, dizziness or fainting Repeated vomiting Inability to urinate due to pain Rash or joint pain Painful open sores around the outer vagina Enlarged painful lymph nodes (lumps) in the groin Pelvic Pain, Uncertain Cause Based on your visit today, the exact cause of your pelvic pain is not certain. But your condition does not appear to be serious at this time. However, the signs of a serious problem may take more time to appear. Therefore, it is important for you to watch for any new symptoms or worsening of your condition. Home Care: Rest until you are feeling better. Avoid sexual intercourse until your pain goes away. You may use acetaminophen (Tylenol) or ibuprofen (Motrin, Advil) to control pain, unless another medicine was prescribed. [NOTE: If you have chronic liver or kidney disease or ever had a stomach ulcer or GI bleeding, talk with your doctor before using these medicines.] Follow Up with your doctor as advised. If a culture test was taken, call in two days for the results. If the culture is positive, you will be given more advice at that time. Otherwise, follow-up with your doctor or this facility as instructed. Get Prompt Medical Attention if any of the following occur: Fever of 100.4F (38C) or higher, or as directed by your healthcare provider Vaginal discharge Worsening pain Weakness, dizziness or fainting Unexpected vaginal bleeding or passage of barrios or white tissue from the vagina Pain that moves to the right lower abdomen Hydrocodone Bitartrate, Acetaminophen Oral tablet What is this medicine? ACETAMINOPHEN; HYDROCODONE (a set a FAHAD jamie fen; ida droe KOE done) is a pain reliever. It is used to treat mild to moderate pain. How should I use this medicine? Take this medicine by mouth. Swallow it with a full glass of water. Follow the directions on the prescription label. If the medicine upsets your stomach, take the medicine with food or milk. Do not take more than you are told to take. Talk to your industrial engineering regarding the use of this medicine in children. This medicine is not approved for use in children. What side effects may I notice from receiving this medicine? Side effects that you should report to your doctor or health patient care secretary as soon as possible: allergic reactions like skin rash, itching or hives, swelling of the face, lips, or tongue breathing problems confusion feeling faint or lightheaded, falls stomach pain yellowing of the eyes or skin Side effects that usually do not require medical attention (report to your doctor or health patient care secretary if they continue or are bothersome): nausea, vomiting stomach upset What may interact with this medicine? alcohol antihistamines isoniazid medicines for depression, anxiety, or psychotic disturbances medicines for sleep muscle relaxants naltrexone narcotic medicines (opiates) for pain phenobarbital ritonavir tramadol What if I miss a dose? If you miss a dose, take it as soon as you can. If it is almost time for your next dose, take only that dose. Do not take double or extra doses. Where should I keep my medicine? Keep out of the reach of children. This medicine can be abused. Keep your medicine in a safe place to protect it from theft. Do not share this medicine with anyone. Selling or giving away this medicine is dangerous and against the law. Store at room temperature between 15 and 30 degrees C (59 and 86 degrees F). Protect from light. Keep container tightly closed. Throw away any unused medicine after the expiration date. Discard unused medicine and used packaging carefully. Pets and children can be harmed if they find used or lost packages. What should I tell my health care provider before I take this medicine? They need to know if you have any of these conditions: brain tumor Crohn's disease, inflammatory bowel disease, or ulcerative colitis drink more than 3 alcohol-containing drinks per day drug abuse or addiction head injury heart or circulation problems kidney disease or problems going to the bathroom liver disease lung disease, asthma, or breathing problems an unusual or allergic reaction to acetaminophen, hydrocodone, other opioid analgesics, other medicines, foods, dyes, or preservatives or trying to get breast-feeding What should I watch for while using this medicine? Tell your doctor or health patient care secretary if your pain does not go away, if it gets worse, or if you have new or a different type of pain. You may develop tolerance to the medicine. Tolerance means that you will need a higher dose of the medicine for pain relief. Tolerance is normal and is expected if you take the medicine for a long time. Do not suddenly stop taking your medicine because you may develop a severe reaction. Your body becomes used to the medicine. This does NOT mean you are addicted. Addiction is a behavior related to getting and using a drug for a non-medical reason. If you have pain, you have a medical reason to take pain medicine. Your doctor will tell you how much medicine to take. If your doctor wants you to stop the medicine, the dose will be slowly lowered over time to avoid any side effects. You may get drowsy or dizzy when you first start taking the medicine or change doses. Do not drive, use machinery, or do anything that may be dangerous until you know how the medicine affects you. Stand or sit up slowly. There are different types of narcotic medicines (opiates) for pain. If you take more than one type at the same time, you may have more side effects. Give your health care provider a list of all medicines you use. Your doctor will tell you how much medicine to take. Do not take more medicine than directed. Call emergency for help if you have problems breathing. The medicine will cause constipation. Try to have a bowel movement at least every 2 to 3 days. If you do not have a bowel movement for 3 days, call your doctor or health patient care secretary. Too much acetaminophen can be very dangerous. Do not take Tylenol (acetaminophen) or medicines that contain acetaminophen with this medicine. Many non-prescription medicines contain acetaminophen. Always read the labels carefully. You have been given the following additional information: Pelvic Inflammatory Disease Pelvic Pain, Unknown Cause Hydrocodone Bitartrate, Acetaminophen Oral tablet (Electronically signed by Yara Mccormack P.A.-C 02/02/2017 17:14)
--- NOTE | 2017-02-02 18:12 | DIAGNOSTIC IMAGING REPORT ---
PROCEDURE: US COMPLETE PELVIC W/TRANSVAG INDICATION: PAIN TECHNIQUE: Transabdominal and endovaginal barrios scale and color Doppler sonographic images of the female pelvis were obtained. COMPARISON: Pelvic ultrasound 07/21/2016. FINDINGS: TRANSABDOMINAL SCANS: Anteverted uterus measures 7 x 4.8 x 3.5 cm. Normal kidneys. TRANSVAGINAL SCANS: Normal myometrium. Endometrium measures 15 mm. Right ovary measures 3.8 x 3 x 2.9 cm and left ovary 3.4 x 1.9 x 1.2 cm. Normal vascular flow to both ovaries. Trace free fluid in the cul-de-sac. IMPRESSION: 1. Trace free fluid the cul-de-sac, probably secondary to a ruptured ovarian follicle. 2. Otherwise negative pelvic ultrasound
== END 2017-02-02 17:10 | disposition home or self-care (01) ==
LOC: ED SRH 15:01
DX: N73.9 Female pelvic inflammatory disease, unspecified (principal); F17.210 Nicotine dependence, cigarettes, uncomplicated; F12.10 Cannabis abuse, uncomplicated; Z79.899 Other long term (current) drug therapy; Z88.0 Allergy status to penicillin
CPT/HCPCS: 90004; 90074; 90100; 90195; 90197; 90469; 91227; 91228; 95059